=== PATIENT | female | born 2000 | race Caucasian/White ===

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

== ENCOUNTER → 2018-01-15 | Outpatient (CLI) | payer OTHER ==
[2018-01-15 20:03] LABS: BASO % 0.6 % (0.0-1.0); EOS # 0.1 10^3/uL (0.0-0.50); EOS % 1.8 % (0.0-3.0); HEMATOCRIT 37.5 % (36.0-47.0); IMMATURE GRANULOCYTE % 0.2 % (0-3.0); LYMPH % 31.2 % (24.0-44.0); MEAN CORPUSCULAR HEMOGLOBIN 29.5 pg (27.0-33.0); MEAN CORPUSCULAR HGB CONC 34.7 g/dl (32.0-36.5); MONO # 0.5 10^3/uL (0.0-0.8); NEUTROPHILS # 3.8 10^3/uL (1.8-7.7); NEUTROPHILS % 58.2 % (36.0-66.0); PLATELET COUNT, AUTOMATED 241 10^3/uL (150-450); RED BLOOD COUNT 4.41 10^6/uL (4.00-5.40); RED CELL DISTRIBUTION WIDTH 11.9 % (11.5-14.5); WHITE BLOOD COUNT 6.5 10^3/uL (4.0-10.0)
[2018-01-15 20:19] LABS: ANION GAP 7 MEQ/L (8-16); BLOOD UREA NITROGEN 14 MG/DL (7-18); CALCIUM LEVEL 8.5 MG/DL (8.5-10.1); CARBON DIOXIDE LEVEL 29 MEQ/L (21-32); CHLORIDE LEVEL 107 MEQ/L (98-107); FERRITIN 28 NG/ML (8-252); FREE T4 0.91 NG/DL (0.78-1.33); GLUCOSE, FASTING 75 MG/DL (70-100); IRON (FE) 91 UG/DL (50-170); PERCENT SATURATION 30.6 % (13.2-45.0); POTASSIUM SERUM 4.3 MEQ/L (3.5-5.1); SODIUM LEVEL 143 MEQ/L (136-145); TOTAL IRON BINDING CAPACITY 297 UG/DL (250-450)
== END ==
LOC: M WUC 15:27
DX: R53.83 Other fatigue (principal)

== ENCOUNTER 2018-03-15 15:21 | Emergency (ER) | payer OTHER | END 2018-03-15 17:36 | disposition home or self-care (01) | LOC: M ED 15:21 | DX: S06.0X0A Concussion without loss of consciousness, initial encounter (principal); S00.81XA Abrasion of other part of head, initial encounter; S00.93XA Contusion of unspecified part of head, initial encounter; W22.8XXA Striking against or struck by other objects, initial encounter; Y92.018 Other place in single-family (private) house as the place of occurrence of the external cause | CPT/HCPCS: 99283 ==

== ENCOUNTER → 2018-06-08 | Outpatient (REF) | payer OTHER | LOC: M SFHCWAGY 16:47 | DX: R35.0 Frequency of micturition (principal) ==

== ENCOUNTER → 2018-08-08 | Outpatient (REF) | payer OTHER ==
[2018-08-08 18:33] LABS: MEAN CORPUSCULAR HEMOGLOBIN 29.3 pg (27.0-33.0); MEAN CORPUSCULAR HGB CONC 34.1 g/dl (32.0-36.5); MEAN CORPUSCULAR VOLUME 85.8 fl (80.0-96.0); PLATELET COUNT, AUTOMATED 288 10^3/uL (150-450); RED BLOOD COUNT 4.78 10^6/uL (4.00-5.40); RED CELL DISTRIBUTION WIDTH 12.1 % (11.5-14.5); WHITE BLOOD COUNT 6.3 10^3/uL (4.0-10.0)
== END ==
LOC: M SFHCWAGY 15:39
DX: N92.1 Excessive and frequent menstruation with irregular cycle (principal)

== ENCOUNTER → 2018-08-10 | Outpatient (CLI) | payer OTHER | LOC: M WHC 10:50 | DX: R10.2 Pelvic and perineal pain (principal) | CPT/HCPCS: 76830 ==

== ENCOUNTER → 2018-11-09 | Outpatient (REF) | payer OTHER ==
[2018-11-09 12:39] LABS: BASO % 0.5 % (0.0-1.0); EOS # 0.1 10^3/uL (0.0-0.50); EOS % 0.9 % (0.0-3.0); HEMATOCRIT 40.7 % (36.0-47.0); HEMOGLOBIN 14.3 g/dl (12.0-15.5); LYMPH % 31.7 % (24.0-44.0); MEAN CORPUSCULAR HEMOGLOBIN 29.7 pg (27.0-33.0); MEAN CORPUSCULAR HGB CONC 35.1 g/dl (32.0-36.5); MEAN CORPUSCULAR VOLUME 84.6 fl (80.0-96.0); MONO # 0.6 10^3/uL (0.0-0.8); MONO % 8.6 % (0.0-5.0); NEUTROPHILS # 3.7 10^3/uL (1.8-7.7); NEUTROPHILS % 58.1 % (36.0-66.0); PLATELET COUNT, AUTOMATED 270 10^3/uL (150-450); RED BLOOD COUNT 4.81 10^6/uL (4.00-5.40); WHITE BLOOD COUNT 6.4 10^3/uL (4.0-10.0)
[2018-11-09 12:49] LABS: HEMATOCRIT 40.8 % (36.0-47.0)
[2018-11-09 12:53] LABS: ALT/SGPT 22 U/L (12-78); BILIRUBIN,TOTAL 0.6 MG/DL (0.2-1.0); BLOOD UREA NITROGEN 16 MG/DL (7-18); CARBON DIOXIDE LEVEL 28 MEQ/L (21-32); CHLORIDE LEVEL 102 MEQ/L (98-107); FREE T3 3.6 PG/ML (2.9-4.5); FREE T4 1.02 NG/DL (0.78-1.33); GLUCOSE, FASTING 87 MG/DL (70-100); IRON (FE) 88 UG/DL (50-170); PERCENT SATURATION 25.7 % (13.2-45.0); POTASSIUM SERUM 3.9 MEQ/L (3.5-5.1); SODIUM LEVEL 137 MEQ/L (136-145); TOTAL IRON BINDING CAPACITY 343 UG/DL (250-450); TOTAL PROTEIN 6.9 GM/DL (6.4-8.2)
[2018-11-09 12:54] LABS: THYROGLOBULIN ANTIBODY < 15.0 U/ML (<60.0); THYROID PEROXIDASE ANTIBODY < 28.0 U/ML (<60.0)
[2018-11-09 12:55] LABS: VITAMIN B12 LEVEL 411 PG/ML (247-911)
[2018-11-09 14:04] LABS: TOTAL 25(OH) VITAMIN D 26.7 NG/ML (30.0-100.0)
[2018-11-14 14:58] LABS: T3 REVERSE 21.6 ng/dL (9.2-24.1)
== END ==
LOC: M LABDRAW1 12:03
PROVIDERS: ATTEND Nurse Practitioner Pediatrics
DX: F43.23 Adjustment disorder with mixed anxiety and depressed mood (principal); R53.81 Other malaise

== ENCOUNTER → 2019-03-08 | Outpatient (REF) | payer OTHER ==
[2019-03-08 18:27] LABS: ALBUMIN 4.1 GM/DL (3.2-5.2); ALT/SGPT 35 U/L (12-78); AMYLASE 59 U/L (25-115); BILIRUBIN,TOTAL 0.5 MG/DL (0.2-1.0); BLOOD UREA NITROGEN 9 MG/DL (7-18); CALCIUM LEVEL 8.8 MG/DL (8.5-10.1); CARBON DIOXIDE LEVEL 28 MEQ/L (21-32); CHLORIDE LEVEL 106 MEQ/L (98-107); GLUCOSE, FASTING 92 MG/DL (70-100); LIPASE 117 U/L (73-393); POTASSIUM SERUM 3.5 MEQ/L (3.5-5.1); SODIUM LEVEL 140 MEQ/L (136-145); TOTAL PROTEIN 6.6 GM/DL (6.4-8.2)
[2019-03-08 18:53] LABS: BASO % 0.5 % (0.0-1.0); EOS % 0.5 % (0.0-3.0); HEMATOCRIT 38.2 % (36.0-47.0); HEMOGLOBIN 12.9 g/dl (12.0-15.5); LYMPH # 1.9 10^3/uL (1.5-6.5); LYMPH % 29.4 % (24.0-44.0); MEAN CORPUSCULAR HEMOGLOBIN 28.9 pg (27.0-33.0); MEAN CORPUSCULAR HGB CONC 33.8 g/dl (32.0-36.5); MEAN CORPUSCULAR VOLUME 85.7 fl (80.0-96.0); MONO # 0.6 10^3/uL (0.0-0.8); NEUTROPHILS # 3.8 10^3/uL (1.8-7.7); NEUTROPHILS % 60.3 % (36.0-66.0); PLATELET COUNT, AUTOMATED 244 10^3/uL (150-450); RED BLOOD COUNT 4.46 10^6/uL (4.00-5.40); WHITE BLOOD COUNT 6.3 10^3/uL (4.0-10.0)
== END ==
LOC: M LABDRAW1 17:36
PROVIDERS: ATTEND Physician Assistant
DX: R10.9 Unspecified abdominal pain (principal)

== ENCOUNTER → 2019-03-12 | Outpatient (CLI) | payer OTHER ==
--- NOTE | 2019-03-12 09:17 | REP ---
Abdominal right upper quadrant ultrasound for abdominal pain: There are no comparisons. There is no cholelithiasis, gallbladder wall thickening or pericholecystic fluid. There is no intrahepatic or extrahepatic biliary duct dilatation. The common biliary duct measures 4.8 mm in diameter. The hepatic parenchyma is homogeneous and otherwise unremarkable. The visualized areas of the pancreas are unremarkable. There is no right renal calculus, hydronephrosis, mass or cyst. Right kidney measures 10.0 x 5.9 x 4.2 cm and is normal size. There is no right upper quadrant ascites. Impression: Essentially negative abdominal right upper quadrant ultrasound. Electronically Signed by Adarsh Gamble MD 03/12/2019 09:09 A
== END ==
LOC: M RAD 07:57
PROVIDERS: ATTEND Physician Assistant
DX: R10.9 Unspecified abdominal pain (principal)

== ENCOUNTER → 2019-04-04 | Outpatient (REF) | payer OTHER | LOC: M LAB REF 09:53 | PROVIDERS: ATTEND Physician Assistant | DX: J02.9 Acute pharyngitis, unspecified (principal) ==

== ENCOUNTER → 2019-10-03 | Outpatient (CLI) | payer OTHER ==
--- NOTE | 2019-10-03 14:51 | REP ---
ULTRASOUND RIGHT BREAST: Real-time sonographic evaluation of the right breast performed in the region of pain, outer aspect. Ultrasound of this area demonstrates dense fibroglandular tissue. No discrete cystic or solid mass is seen. IMPRESSION: ACR 2 benign. Dense breast parenchyma in the lateral right breast region of pain with no discrete cystic or solid mass. Electronically Signed by Adarsh Coleman MD 10/03/2019 04:56 P
== END ==
LOC: M RAD 13:16
PROVIDERS: ATTEND Nurse Practitioner Family
DX: R22.2 Localized swelling, mass and lump, trunk (principal); N64.4 Mastodynia

== ENCOUNTER → 2019-12-22 | Outpatient (REF) | payer OTHER | LOC: M LAB REF 16:16 | PROVIDERS: ATTEND Physician Assistant | DX: J11.1 Influenza due to unidentified influenza virus with other respiratory manifestations (principal) ==

== ENCOUNTER → 2020-01-09 | Outpatient (REF) | payer OTHER | LOC: M LAB REF 19:15 | PROVIDERS: ATTEND Physician Assistant | DX: A38.9 Scarlet fever, uncomplicated (principal) ==

== ENCOUNTER → 2021-01-07 | Outpatient (REF) | payer OTHER ==
[2021-01-07 21:51] LABS: APPEARANCE, URINE HAZY (CLEAR); BACTERIA, URINE AUTO NEGATIVE (NEGATIVE); BILIRUBIN, URINE AUTO NEGATIVE (NEGATIVE); BLOOD, URINE BLOOD NEGATIVE (NEGATIVE); COLOR, URINE YELLOW (YELLOW); GLUCOSE, URINE (UA) AUTO NEGATIVE (NEGATIVE); KETONE, URINE AUTO NEGATIVE (NEGATIVE); LEUKOCYTE ESTERASE, URINE AUTO NEGATIVE (NEGATIVE); NITRITE, URINE AUTO NEGATIVE (NEGATIVE); PROTEIN, URINE AUTO NEGATIVE (NEGATIVE); RBC, URINE AUTO 3 /HPF (0-3); SQUAMOUS EPITHELIAL CELL UR AU 2 /HPF (0-6); UROBILINOGEN, URINE AUTO 0.2 mg/dL (0.0-2.0); WBC, URINE AUTO 2 /HPF (0-3)
== END ==
LOC: M LAB REF 21:19
PROVIDERS: ATTEND Physician Assistant
DX: R30.0 Dysuria (principal)

== ENCOUNTER → 2021-03-15 | Outpatient (REF) | payer OTHER ==
[2021-03-15 19:07] LABS: CHLAMYDIA DNA AMPLIFICATION NEGATIVE (NEGATIVE); GC DNA AMPLIFICATION NEGATIVE (NEGATIVE)
== END ==
LOC: M SFHCWAGY 16:45
PROVIDERS: ATTEND Nurse Practitioner Women's Health
DX: Z11.3 Encounter for screening for infections with a predominantly sexual mode of transmission (principal)
CPT/HCPCS: 87491; 87591; G0123

== ENCOUNTER → 2021-05-15 | Outpatient (REF) | payer OTHER ==
[2021-05-15 20:07] LABS: APPEARANCE, URINE HAZY (CLEAR); BACTERIA, URINE AUTO NEGATIVE (NEGATIVE); BILIRUBIN, URINE AUTO NEGATIVE (NEGATIVE); BLOOD, URINE BLOOD 3+ (NEGATIVE); COLOR, URINE STRAW (YELLOW); GLUCOSE, URINE (UA) AUTO NEGATIVE (NEGATIVE); KETONE, URINE AUTO NEGATIVE (NEGATIVE); LEUKOCYTE ESTERASE, URINE AUTO 1+ (NEGATIVE); NITRITE, URINE AUTO NEGATIVE (NEGATIVE); PROTEIN, URINE AUTO NEGATIVE (NEGATIVE); RBC, URINE AUTO 2 /HPF (0-3); SPECIFIC GRAVITY URINE AUTO 1.002 (1.002-1.035); SQUAMOUS EPITHELIAL CELL UR AU 4 /HPF (0-6); UROBILINOGEN, URINE AUTO 0.2 mg/dL (0.0-2.0); WBC, URINE AUTO 1 /HPF (0-3)
== END ==
LOC: M LAB REF 19:20
PROVIDERS: ATTEND Physician Assistant Medical
DX: N39.0 Urinary tract infection, site not specified (principal)

== ENCOUNTER → 2021-10-19 | Outpatient (CLI) | payer OTHER ==
[2021-10-19 11:01] LABS: HCG, SERUM QUALITATIVE NEGATIVE (NEGATIVE)
== END ==
LOC: M WUC 08:12
PROVIDERS: ATTEND Advanced Practice Midwife
DX: Z32.01 Encounter for pregnancy test, result positive (principal)

== ENCOUNTER → 2022-08-17 | Outpatient (REF) | payer OTHER ==
[2022-08-18 12:42] LABS: GC DNA AMPLIFICATION NEGATIVE (NEGATIVE)
== END ==
LOC: M SFHCWAGY 09:50
PROVIDERS: ATTEND Advanced Practice Midwife
DX: A59.9 Trichomoniasis, unspecified (principal); R35.0 Frequency of micturition; Z11.3 Encounter for screening for infections with a predominantly sexual mode of transmission

== ENCOUNTER → 2022-11-30 | Outpatient (REF) | payer OTHER ==
[2022-11-30 19:34] LABS: GC DNA AMPLIFICATION NEGATIVE (NEGATIVE)
== END ==
LOC: M SFHCWAGY 17:27
PROVIDERS: ATTEND Advanced Practice Midwife
DX: Z11.3 Encounter for screening for infections with a predominantly sexual mode of transmission (principal)

== ENCOUNTER → 2022-12-19 | Outpatient (CLI) | payer OTHER ==
[2022-12-19 20:08] LABS: BASO # 0.1 10^3/uL (0.0-0.2); BASO % 0.9 % (0.0-1.0); EOS # 0.1 10^3/uL (0.0-0.5); EOS % 2.2 % (0.0-3.0); HEMATOCRIT 43.1 % (36.0-47.0); LYMPH # 1.7 10^3/uL (1.5-5.0); LYMPH % 31.7 % (24.0-44.0); MEAN CORPUSCULAR HEMOGLOBIN 29.4 pg (27.0-33.0); MEAN CORPUSCULAR HGB CONC 32.5 g/dl (32.0-36.5); MEAN CORPUSCULAR VOLUME 90.4 fl (80.0-96.0); MONO # 0.5 10^3/uL (0.0-0.8); MONO % 9.2 % (2.0-8.0); NEUTROPHILS # 3.1 10^3/uL (1.5-8.5); NEUTROPHILS % 55.8 % (36.0-66.0); PLATELET COUNT, AUTOMATED 299 10^3/uL (150-450); RED BLOOD COUNT 4.77 10^6/uL (4.00-5.40); WHITE BLOOD COUNT 5.5 10^3/uL (4.0-10.0)
[2022-12-19 20:37] LABS: THYROID STIMULATING HORMONE 2.123 uIU/ML (0.55-4.78)
[2022-12-19 20:38] LABS: FREE T4 1.05 NG/DL (0.89-1.76)
[2022-12-19 20:40] LABS: ALBUMIN 4.2 G/DL (3.2-5.2); ALKALINE PHOSPHATASE 69 U/L (46-116); ALT/SGPT 14 U/L (7.0-40); AST/SGOT 20 U/L (<34); BILIRUBIN,TOTAL 0.5 MG/DL (0.3-1.2); BLOOD UREA NITROGEN 11 MG/DL (9-23); CALCIUM LEVEL 9.9 MG/DL (8.5-10.1); CARBON DIOXIDE LEVEL 32 MMOL/L (20-31); CHLORIDE LEVEL 106 MMOL/L (98-107); CREATININE FOR GFR 0.75 MG/DL (0.55-1.30); GLOMERULAR FILTRATION RATE > 60.0 (>60); GLUCOSE, FASTING 90 MG/DL (60-100); POTASSIUM SERUM 4.4 MMOL/L (3.5-5.1); SODIUM LEVEL 141 MMOL/L (136-145)
== END ==
LOC: M WUC 14:53
PROVIDERS: ATTEND Registered Nurse
DX: R21 Rash and other nonspecific skin eruption (principal)

== ENCOUNTER → 2023-01-06 | Outpatient (REF) | payer OTHER | LOC: M PLALAB 08:56 | PROVIDERS: ATTEND Nurse Practitioner Family | DX: Z53.9 Procedure and treatment not carried out, unspecified reason (principal) ==

== ENCOUNTER → 2023-08-31 | Outpatient (REF) | payer OTHER | LOC: M LAB REF 17:19 | PROVIDERS: ATTEND Registered Nurse | DX: R35.0 Frequency of micturition (principal) ==

== ENCOUNTER → 2024-01-30 | Outpatient (CLI) | payer OTHER ==
[2024-01-30 17:54] LABS: BASO # 0.1 10^3/uL (0.0-0.2); BASO % 0.7 % (0.0-1.0); EOS # 0.1 10^3/uL (0.0-0.5); HEMATOCRIT 41.1 % (36.0-47.0); LYMPH # 2.1 10^3/uL (1.5-5.0); LYMPH % 29.8 % (24.0-44.0); MEAN CORPUSCULAR HEMOGLOBIN 30.6 pg (27.0-33.0); MEAN CORPUSCULAR HGB CONC 34.1 g/dl (32.0-36.5); MEAN CORPUSCULAR VOLUME 89.9 fl (80.0-96.0); MONO # 0.6 10^3/uL (0.0-0.8); MONO % 8.9 % (2.0-8.0); NEUTROPHILS # 4.1 10^3/uL (1.5-8.5); NEUTROPHILS % 58.3 % (36.0-66.0); PLATELET COUNT, AUTOMATED 222 10^3/uL (150-450); RED BLOOD COUNT 4.57 10^6/uL (4.00-5.40); WHITE BLOOD COUNT 7.1 10^3/uL (4.0-10.0)
[2024-01-30 18:10] LABS: HCG, SERUM QUANTITATIVE < 2.6 MIU/ML (<4.2)
[2024-01-30 18:13] LABS: FREE T4 1.32 NG/DL (0.89-1.76); THYROID STIMULATING HORMONE 3.835 uIU/ML (0.55-4.78)
[2024-01-30 18:14] LABS: ALBUMIN 3.8 G/DL (3.2-5.2); ALKALINE PHOSPHATASE 68 U/L (46-116); ALT/SGPT 20 U/L (7.0-40); AST/SGOT 15 U/L (<34); BILIRUBIN,TOTAL 0.5 MG/DL (0.3-1.2); BLOOD UREA NITROGEN 17 MG/DL (9-23); CALCIUM LEVEL 8.7 MG/DL (8.5-10.1); CARBON DIOXIDE LEVEL 29 MMOL/L (20-31); CHLORIDE LEVEL 105 MMOL/L (98-107); CREATININE FOR GFR 0.63 MG/DL (0.55-1.30); GLOMERULAR FILTRATION RATE > 60.0 (>60); GLUCOSE, FASTING 85 MG/DL (60-100); POTASSIUM SERUM 3.8 MMOL/L (3.5-5.1); SODIUM LEVEL 139 MMOL/L (136-145); TOTAL 25(OH) VITAMIN D 31.2 NG/ML (20.0-100.0); TOTAL PROTEIN 6.2 G/DL (5.7-8.2)
== END ==
LOC: M WUC 11:24
PROVIDERS: ATTEND Registered Nurse
DX: N64.4 Mastodynia (principal)